=== PATIENT | male | born 1950 | race Caucasian/White ===

== ENCOUNTER 2019-10-14 10:00 | Emergency (ER) | payer MEDICARE, SELFPAY ==
--- NOTE | ~2019-10-14 | CT_ITS ---
EXAMINATION: CT brain wo con DATE: 10/14/2019 10:06 INDICATION: Right hemiparesis with right arm weakness and facial droop. Trouble following commands. TECHNIQUE: Computed tomography (CT) of the head was performed without intravenous contrast. Sagittal and coronal reconstructions were performed. The mA was adjusted according to patient size. Iterative reconstruction technique was employed. The dose-length product was 605.33 mGy-cm. COMPARISON: head CT dated 10/04/2018 FINDINGS: No acute intracranial hemorrhage, acute infarction or abnormal extra axial fluid collection. Symmetri c prominence of the sulci and subarachnoid spaces overlying the convexities consistent with mild age- appropriate diffuse cerebral volume loss. Ventricles are normal and symmetric. No mass/mass effect. T he orbitsand paranasal sinuses are normal. Small bilateral mastoid effusions. Intracranial calcified cerebral atherosclerosis is noted. IMPRESSION: 1. No acute intracranial process. Reviewed, dictated and finalized at location A.
--- NOTE | ~2019-10-14 | XR_ITS ---
EXAMINATION: XR chest 1V portable INDICATION: Strokelike symptoms TECHNIQUE: Portable AP chest at 1038 hours COMPARISON: 10/04/2018 FINDINGS: Mild bibasilar atelectasis persists without significant change. There are no focal airspace opacities. The cardiomediastinal silhouette is normal. Calcified right hilar and right paratracheal lymph nodes are consistent with old granulomatous disease. IMPRESSION: 1. Mild bibasilar atelectasis. Reviewed, dictated and finalized at location A.
--- NOTE | 2019-10-14 10:01 | ECG_ITS ---
Measurements Intervals [place] Rate: 89 P: 59 TN: 146 QRS: 8 QRSD: 93 T: 106 QT: 370 QTc: 451 Interpretive Statements SINUS RHYTHM EARLY PRECORDIAL R/S TRANSITION NONSPECIFIC ST & T-WAVE ABNORMALITY- LATERAL LEADS BASELINE ARTIFACT- I, II, III, AVR, AVL, AVF, V4-V5 BORDERLINE ECG Electronically Signed On 10-14-2019 10:22:19 CDT by Vincent Hernandez D.O.
[2019-10-14 10:15] VITALS: BP 158/84; PULSE 90; RESP 20; TEMP 36.6; O2SAT 100
--- NOTE | 2019-10-14 10:20 | ED.NEUROSD ---
HPI - Neuro Symptoms/Deficit General Chief Complaint: Suspected CVA <Mayco Pereyra PA-C - Last Filed: 10/14/19 12:39> Stated Complaint: Code Stroke <Mayco Pereyra PA-C - Last Filed: 10/14/19 12:39> Time Seen by Provider: 10/14/19 10:14 <Mayco Pereyra PA-C - Last Filed: 10/14/19 12:39> Source: patient and family () <Mayco Pereyra PA-C - Last Filed: 10/14/19 12:39> Mode of arrival: EMS <Mayco Pereyra PA-C - Last Filed: 10/14/19 12:39> Limitations: language barrier (Dysphasia) <Mayco Pereyra PA-C - Last Filed: 10/14/19 12:39> History of Present Illness HPI Narrative: Patient presents with chief complaint of stroke like symptoms that began at 915 this morning. Patient was having breakfast with his when he stopped responding to her for a few seconds then began having garbled speech. Patient's states that he had a stroke on October 04, 2018 with a subarachnoid hemorrhage and was transferred to [place]. Patient was evaluated and Plavix was stopped in August as he was doing well, per . She states that his [place] neurologist is Dr. Garrido. 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 Patient denies any pain or falls or head injury. 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 He denies chest pain or SOB. <Mayco Pereyra PA-C - Last Filed: 10/14/19 12:39> Related Data Home Medications: Home Medications Medication Instructions Recorded Confirmed amlodipine 5 mg PO DAILY 10/14/19 10/14/19 aspirin [Butch Aspirin] 325 mg PO DAILY 10/14/19 10/14/19 atorvastatin 80 mg PO DAILY 10/14/19 10/14/19 duloxetine 60 mg PO DAILY 10/14/19 10/14/19 esomeprazole magnesium mg 10/14/19 tramadol 50 mg PO Q6H PRN 10/14/19 10/14/19 valsartan 320 mg PO DAILY 10/14/19 10/14/19 <Mayco Pereyra PA-C - Last Filed: 10/14/19 12:39> Allergies/Adverse Reactions: Allergies Allergy/AdvReac Type Severity Reaction Status Date / Time Penicillins Allergy Severe SKIN PEELS Verified 03/29/17 08:16 <Mayco Pereyra PA-C - Last Filed: 10/14/19 12:39> Review of Systems Review of Systems: Narrative: CONSTITUTIONAL: Denies fever, chills, or sweats. EYES: Denies visual changes, redness, or discharge. ENT: Denies rhinorrhea, congestion, sore throat, or otalgia. CARDIOVASCULAR: Denies chest pain, palpitations, or edema. RESPIRATORY: Denies cough or dyspnea. GASTROINTESTINAL: Denies abdominal pain, nausea, vomiting, or diarrhea. GENITOURINARY: Denies dysuria or hematuria. SKIN: Denies rash or itching. MUSCULOSKELETAL: Denies back pain, joint pain, or myalgia. 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 Denies headache, numbness, dizziness PSYCHIATRIC: Denies anxiety or depression. <Mayco Pereyra PA-C - Last Filed: 10/14/19 12:39> Exam Narrative: Exam Narrative: GENERAL: Well-appearing, well-nourished. Alert. Follows some commands but not all. HEAD: Normocephalic, atraumatic. EYES: PERRLA and EOMI. ENT: Nares clear, no rhinorrhea or epistaxis. Mucous membranes moist. Oropharynx without tonsillar hypertrophy exudate or other lesions. Bilateral TMs pearly balderas nonbulging NECK: Supple. No adenopathy or masses. No carotid bruits or JVD CHEST: Clear to auscultation. No respiratory distress. No wheezes rales or rhonchi HEART: Regular rate and rhythm. No murmur heard. Normal peripheral pulses. ABDOMEN: Soft, nontender, nondistended, normal active bowel sounds. EXTREMITIES: Patient able to hold up upper and lower extremities without drift. 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 Sensation lost per patient to lower extremities with light or pain stimulus. SKIN: Warm, dry, no rash. NEURO: No focal deficits. Alert. Patient has dysphagia and aphagia and becomes frustrated as he realizes he is not sa
[2019-10-14 10:27] LABS: Glucose Point of Care 126 (65-105)
[2019-10-14 10:39] LABS: Basophils Absolute Auto 0.1 K/mm3 (0.0-0.1); Basophils Percent Auto 1.1 % (0.2-1.2); Eosinophils Absolute Auto 0.5 K/mm3 (0-0.3); Eosinophils Percent Auto 6.3 % (0-4.4); Hematocrit 46.3 % (42.0-52.0); Hemoglobin 14.6 g/dL (14.0-18.0); Immature Granulocyte Absolute 0.05 K/mm3 (0.00-0.031); Immature Granulocyte Percent A 0.6 % (0-0.5); Lymphocytes Percent Auto 20.2 % (18.3-44.2); Mean Corpuscular HGB Conc 31.5 g/dl (32-36); Mean Corpuscular Hemoglobin 29.1 pg (26-34); Mean Corpuscular Volume 92.4 fl (80-100); Monocytes Absolute Auto 1.2 K/mm3 (0.1-0.6); Monocytes Percent Auto 14.6 % (2.6-8.5); Neutrophils Absolute Auto 4.8 K/mm3 (1.3-6.7); Neutrophils Percent Auto 57.2 % (45.5-73.1); Platelet Count Result 192 k/mm3 (150-375); Red Blood Count 5.01 M/mm3 (4.6-6.20); White Blood Count 8.4 K/mm3 (4.5-10.0)
[2019-10-14 10:49] LABS: INR 0.9; Partial Thromboplastin Time 26.2 SECONDS (22.3-36.8); Prothrombin Time 11.9 Seconds (11.1-14.7)
[2019-10-14 10:50] LABS: Blood Urea Nitrogen 18 mg/dL (9-20); Calcium 8.6 mg/dL (8.4-10.2); Carbon Dioxide 29 mmol/L (22-30); Chloride 105 mmol/L (98-107); Estimated CRCL calculation 94 ml/min; Estimated Glomerular Filt Rate > 60; Glucose 134 mg/dL (75-110); Potassium 4.4 mmol/L (3.4-5.0); Sodium 139 mmol/L (137-145)
[2019-10-14 11:02] LABS: Troponin I < 0.012 ng/mL (0.000-0.034)
[2019-10-14] MEDS: SODIUM CHLORIDE 0.9% IV 1,000 ML 30 ML IV CONT (11:24)
[2019-10-14 11:55] VITALS: BP 156/89; PULSE 85; RESP 18; O2SAT 99
--- NOTE | 2019-10-14 11:58 | PC.NURSE ---
TPA 81mg over 1 hour administered at this time on pump, confirmed by RACHAEL Zhao.
[2019-10-14 12:10] VITALS: BP 145/86; PULSE 82; RESP 15; O2SAT 99
[2019-10-14 12:20] VITALS: BP 146/82; PULSE 84; RESP 15; O2SAT 99
== END 2019-10-14 12:35 | disposition short-term general hospital (02) ==
PROVIDERS: Emergency Provider Emergency Medicine
DX: I63.9 Cerebral infarction, unspecified (principal); I65.29 Occlusion and stenosis of unspecified carotid artery; R94.31 Abnormal electrocardiogram [ECG] [EKG]; R29.708 NIHSS score 8
CPT/HCPCS: 36415; 37195; 70450; 71045; 80048; 82948; 84484; 85025; 85610; 85730; 93005; 96360; 99285; J2997; J7030

== ENCOUNTER → 2022-12-21 08:01 | Outpatient (CLI) | payer MEDICARE, SELFPAY ==
--- NOTE | ~2022-12-21 | US_ITS ---
Pelvic ultrasound. Clinical History: Urinary frequency and polyuria Technique: Realtime transabdominal scanning of the pelvis was performed. Findings: Urinary bladder is partially distended initially, with prevoid urinary bladder volume of 12 9 mL. No wall thickening or intraluminal mass seen. There is tiny post void residual of 2 mL. Impression: Essentially unremarkable exam. Prevoid urinary bladder volume of 129 mL, with 2 mL of post void resid ual. Reviewed, dictated and finalized at location M. Impression: Essentially unremarkable exam. Prevoid urinary bladder volume of 129 mL, with 2 mL of post void residual.
== END ==
PROVIDERS: PCP Internal Medicine; Visit Provider Internal Medicine
DX: R35.0 Frequency of micturition (principal)
CPT/HCPCS: 76857